=== PATIENT | male | born 1975 | race Caucasian/White ===

== ENCOUNTER 2017-09-16 05:46 | Emergency (ER) | payer SELFPAY ==
[~2017-09-16] VITALS: Ht 182.9 cm; Wt 81.8 kg
[2017-09-16 05:49] VITALS: BP 134/76
== END 2017-09-16 08:30 | disposition left against medical advice (07) ==
LOC: ER 05:46
DX: M79.605 Pain in left leg (principal); M79.604 Pain in right leg; Z53.21 Procedure and treatment not carried out due to patient leaving prior to being seen by health care provider

== ENCOUNTER 2017-09-16 09:46 | Emergency (ER) | payer SELFPAY | END 2017-09-16 17:44 | disposition left against medical advice (07) | LOC: ER 10:33 | DX: Z53.21 Procedure and treatment not carried out due to patient leaving prior to being seen by health care provider (principal) ==